=== PATIENT | female | born 1995 | race Caucasian/White ===

== ENCOUNTER 2020-01-20 11:37 | Emergency (ER) | payer OTHER ==
[~2020-01-20] VITALS: Ht 162.6 cm; Wt 77.1 kg
[2020-01-20 11:40] VITALS: BP 139/79
--- NOTE | 2020-01-20 11:42 | NUR ---
PT TAKEN TO LOBBY BY WHEELCHAIR
--- NOTE | 2020-01-20 13:27 | NUR ---
24 Y/O FEMALE FROM HOME BIBA BLS FOR C/O ANXIETY S/P EATING 2 EDIBLES OF MARIJUANA AT 0300 THIS MORNING. RR EVEN AND UNLABORED. AWAKE AND ALERT. VSS MEDHX: DENIES
[2020-01-20 13:28] VITALS: BP 159/89
--- NOTE | 2020-01-20 13:28 | NUR ---
Patient discharged with v/s stable. Written and verbal after care instructions given and explained. Patient verbalized understanding. Ambulatory with steady gait. All questions addressed prior to discharge. Advised to follow up with PMD.
== END 2020-01-20 13:28 | disposition home or self-care (01) ==
LOC: MED 11:37
DX: F12.90 Cannabis use, unspecified, uncomplicated (principal); F41.9 Anxiety disorder, unspecified
CPT/HCPCS: 99283